=== PATIENT | male | born 1965 | race African-American/Black ===

== ENCOUNTER 2016-12-20 11:27 | Observation (INO) | payer OTHER ==
--- NOTE | 2016-12-20 11:59 | CPEKG ---
Heart Rate: 74 RR Interval: 811 P-R Interval: 164 QRSD Interval: 132 QT Interval: 412 QTC Interval: 457 P Hillister: 62 QRS Hillister: -61 T Wave Hillister: 20 EKG Severity - ABNORMAL ECG - EKG Impression: SINUS RHYTHM EKG Impression: RBBB AND LAFB EKG Impression: LEFT VENTRICULAR HYPERTROPHY Electronically Signed By: Calderon Nassar 20-Dec-2016 12:13:00
[2016-12-20 12:10] LABS: % IMMATURE GRANULYOCYTES 0.5 % (0.0-1.1); ABSOLUTE IMMATURE GRANULOCYTES 0.02 10^3/uL (0.00-0.10); ADD DIFF? NO; ADD MORPH? NO; ADD SCAN? NO; ATYPICAL LYMPHOCYTE FLAG 20 (0-99); FRAGMENT RBC FLAG 0 (0-99); HEMATOCRIT 39.5 % (40.0-51.0); HEMOGLOBIN 13.4 g/dL (13.7-17.5); LEFT SHIFT FLG 10 (0-99); LIPEMIA HEMOLYSIS FLAG 90 (0-99); MEAN CELL HEMOGLOBIN 31.4 pg (27.9-34.1); MEAN CELL HEMOGLOBIN CONCENTR. 33.9 g/dL (32.4-36.7); MEAN CELL VOLUME 92.5 fL (81.5-99.8); MEAN PLATELET VOLUME 9.8 fL (8.7-11.7); PLATELET CLUMPS FLAG 0 (0-99); PLATELET COUNT 162 10^3/uL (150-400); RED BLOOD CELL COUNT 4.27 10^6/uL (4.40-6.38); RED CELL DISTRIBUTION WIDTH 13.2 % (11.5-15.2)
--- NOTE | 2016-12-20 12:19 | EDPHY ---
H & P Stated Complaint: lightheaded since awaking this morning, high blood pressure Time Seen by Provider: 12/20/16 11:34 HPI/ROS: CHIEF COMPLAINT: Presyncope HISTORY OF PRESENT ILLNESS: The patient presents to the ED with complaints of presyncope that occurred approximately 2 hours after taking his regular dose of lisinopril. The patient denies any complaints of vertigo. He denies focal numbness or weakness. He denies recent fever, cough or congestion. The patient reports no changes to his regular medications. He has normal urine output. The patient was concerned about his ongoing symptoms and contacted paramedics. The patient was noted to be initially hypertensive upon arrival. He was brought to the ED for further evaluation. In the emergency department, the patient continues to complain of a sensation of vague generalized weakness and presyncope. He denies additional acute complaints. REVIEW OF SYSTEMS: A comprehensive 10 point review of systems is otherwise negative aside from elements mentioned in the history of present illness. Source: Patient Exam Limitations: No limitations - Personal History Current Tetanus/Diphtheria Vaccine: Unsure Current Tetanus Diphtheria and Acellular Pertussis (TDAP): Unsure - Medical/Surgical History Hx Asthma: No Hx Chronic Respiratory Disease: No Hx Diabetes: No Hx Cardiac Disease: No Hx Renal Disease: No Hx Cirrhosis: No Hx Alcoholism: No Hx HIV/AIDS: No Hx Splenectomy or Spleen Trauma: No Other PMH: htn - Social History Smoking Status: Never smoked - Physical Exam Exam: General Appearance: Alert, no distress Eyes: Pupils equal and round no pallor or injection ENT, Mouth: Mucous membranes moist Respiratory: There are no retractions, lungs are clear to auscultation Cardiovascular: Regular rate and rhythm Gastrointestinal: Abdomen is soft and nontender, no masses, bowel sounds normal Neurological: A&O, normal motor function, normal sensory exam, normal cranial nerves Skin: Warm and dry, no rashes Musculoskeletal: Neck is supple nontender Extremities: symmetrical, full range of motion Constitutional: Initial Vital Signs Temperature (C) 36.7 C 12/20/16 11:33 Heart Rate 83 12/20/16 11:33 Respiratory Rate 18 12/20/16 11:33 Blood Pressure 160/113 H 12/20/16 11:33 O2 Sat (%) 95 12/20/16 11:33 O2 Delivery Mode Room Air Allergies/Adverse Reactions: No Known Allergies Allergy (Unverified 12/20/16 11:35) Home Medications: Medication Instructions Recorded Lisinopril 12/20/16 Medical Decision Making - Diagnostics EKG Interpretation: EKG: Complete interpretation has been separately recorded in the [facility] archive. Summary impression: Bifascicular block, LVH Imaging: Chest x-ray PA lateral: Images reviewed by myself, negative for acute disease. Formal interpretation by Radiology pending. ED Course/Re-evaluation: The patient presents to the emergency department with complaints of positional presyncope that occurred after taking his lisinopril. Upon arrival, the patient 's blood pressure is 140/100. His EKG does demonstrate a bifascicular block. There is no prior EKG to compare to. The patient was placed on a pharmacist technician. He received a L of normal saline. Screening laboratory studies have been ordered. The patient was observed in the ED without evidence of arrhythmia. He developed no hypotension or significant hypertension throughout his stay. The patient was re-evaluated by myself at 2:00 p.m.. The patient developed a recurrent episode of presyncope and was noted to be in a tachyarrhythmia at a rate of approximately 130-140. This broke before formal EKG could be obtained. In reviewing the rhythm strip my it is unclear whether the patient went into a sinus tachycardia or atrial flutter. Given the patient's ongoing symtpoms of syncope with nonspecific arrhythmias I do feel he should be admitted to the hospital. I called [facility] at 2pm. I do not feel the patient is safe to be transferred in the setting of an undiagnosed tachyarrhythmia. The patient will be admitted to our hospital for close observation this evening. Consultation is made with Dr. Mark Jin at 2:00 p.m.. Differential Diagnosis: Differential diagnosis considered includes medication side effect, metabolic abnormality, arrhythmia - Data Points Laboratory Results: Laboratory Results 12/20/16 11:58 12/20/16 11:58 12/20/16 12/20/16 11:58 11:58 WBC 3.79 10^3/uL L 10^3/uL (3.80-9.50) RBC 4.27 10^6/uL L 10^6/uL (4.40-6.38) Hgb 13.4 g/dL L g/dL (13.7-17.5) Hct 39.5 % L % (40.0-51.0) MCV 92.5 fL fL (81.5-99.8) MCH 31.4 pg pg (27.9-34.1) MCHC 33.9 g/dL g/dL (32.4-36.7) RDW 13.2 % % (11.5-15.2) Plt Count 162 10^3/uL 10^3/uL (150-400) MPV 9.8 fL fL (8.7-11.7) Neut % (Auto) 61.0 % % (39.3-74.2) Lymph % (Auto) 23.2 % % (15.0-45.0) Villalba % (Auto) 13.2 % H % (4.5-13.0) Eos % (Auto) 1.8 % % (0.6-7.6) Baso % (Auto) 0.3 % % (0.3-1.7) Nucleat RBC Rel Count 0.0 % % (0.0-0.2) Absolute Neuts (auto) 2.31 10^3/uL 10^3/uL (1.70-6.50) Absolute Lymphs (auto) 0.88 10^3/uL L 10^3/uL (1.00-3.00) Absolute Monos (auto) 0.50 10^3/uL 10^3/uL (0.30-0.80) Absolute Eos (auto) 0.07 10^3/uL 10^3/uL (0.03-0.40) Absolute Basos (auto) 0.01 10^3/uL L 10^3/uL (0.02-0.10) Absolute Nucleated RBC 0.00 10^3/uL 10^3/uL (0-0.01) Immature Gran % 0.5 % % (0.0-1.1) Immature Gran # 0.02 10^3/uL 10^3/uL (0.00-0.10) Sodium 140 mEq/L mEq/L (134-144) Potassium 4.1 mEq/L mEq/L (3.5-5.2) Chloride 103 mEq/L mEq/L (97-110) Carbon Dioxide 26 mEq/l mEq/l (22-31) Anion Gap 11 mEq/L mEq/L (8-16) BUN 14 mg/dL mg/dL (7-23) Creatinine 0.8 mg/dL mg/dL (0.7-1.3) Estimated GFR > 60 Glucose 88 mg/dL mg/dL (70-100) Calcium 9.4 mg/dL mg/dL (8.5-10.4) Troponin I < 0.012 ng/mL ng/mL (0-0.034) Departure - Departure Disposition: [facility] Inpatient Acute Clinical Impression: Pre-syncope, Tachycardia Condition: Good
[2016-12-20 12:32] LABS: ANION GAP 11 mEq/L (8-16); CALCIUM 9.4 mg/dL (8.5-10.4); CARBON DIOXIDE 26 mEq/l (22-31); CHLORIDE 103 mEq/L (97-110); CREATININE 0.8 mg/dL (0.7-1.3); GLOMERULAR FILTRATION RATE > 60; GLUCOSE 88 mg/dL (70-100); POTASSIUM 4.1 mEq/L (3.5-5.2); SODIUM 140 mEq/L (134-144)
[2016-12-20 12:42] LABS: TROPONIN I < 0.012 ng/mL (0-0.034)
[2016-12-20] MEDS ORDERED: ACETAMINOPHEN 325 MG TAB PO PRN (14:52)
[2016-12-20] MEDS ORDERED: ONDANSETRON 4 MG/2 ML VIAL IVP PRN (14:52)
[2016-12-20] MEDS ORDERED: ONDANSETRON DISINTEGRATING 4 MG TAB PO PRN (14:52)
--- NOTE | 2016-12-20 15:40 | GHP ---
[f rep st] HISTORY AND PHYSICAL DATE OF ADMISSION: 12/20/2016 HISTORY OF PRESENT ILLNESS: The patient is a 51-year-old gentleman with a history of hypertension who presented with presyncope today. He took a lisinopril at work at about 8:30, subsequently, a couple of hours later, stood up and felt dizzy and lightheaded. He also noted palpitations, which he describes as very fast in his chest. His mother has a history of a rapid heartbeat, arrhythmia. He cannot tell me if it is atrial fibrillation versus other diagnosis. He has had a cardiac workup that he has been told is inconclusive, but this has not included heart monitor or outpatient telemetry monitoring. It sounds like he has probably had a stress test. His exercise tolerance is good. He typically does more than 11,000 steps per day as part of his job. He does not have anginal symptoms. He has noted some increased dyspnea on exertion lately, but that has corresponded to a cold, and it does not sound like he has had any new shortness of breath that is unrelated to his new cold. He does not have PND, orthopnea, or lower extremity edema. He does smoke cigarettes. He does not drink much alcohol. He says he uses a moderate amount of caffeine and does not use other stimulant drugs. No fever, chills, cough, sputum. REVIEW OF SYSTEMS: A complete 10-point review of systems was conducted and negative except as noted in the HPI. PAST MEDICAL HISTORY: Hypertension. FAMILY HISTORY: See HPI. SOCIAL HISTORY: Active job. Originally from [place], [place]. Lives in [place] for 3 years. 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 Lives in [place]. ALLERGIES: No known drug allergies. MEDICATIONS: Lisinopril. PHYSICAL EXAM: VITAL SIGNS: Temp 36.7, blood pressure 160/113, pulse 83, breathing 18 times a minute, 95% on room air. GENERAL: No acute distress. HEENT: Sclerae anicteric. Oropharynx clear. Mucous membranes moist. NECK: Supple. No lymphadenopathy or JVD. LUNGS: Clear to auscultation bilaterally. HEART: S1, S2 without murmur. ABDOMEN: Soft, nontender, nondistended. LOWER EXTREMITIES: No edema. Calves are nontender. SKIN: Without rash. NEUROLOGIC: Grossly nonfocal. LABS: White count 3.8, hematocrit 39.5, platelets are 162,000. Troponin less than 0.012. Sodium 140, potassium 4.1, chloride 103, bicarb 26, BUN 14, creatinine 0.8, glucose 88. STUDIES: Chest x-ray interpreted by me shows no acute cardiopulmonary disease. EKG interpreted by me shows a right bundle branch block, left anterior fascicular block. Telemetry in the ER revealed tachyarrhythmia at about 150. There was a lot of artifact, so it was impossible to see if there were flutter waves or not. I have discussed the case with Dr. Brien Nassar. ASSESSMENT/PLAN: A 51-year-old gentleman who presented with palpitations and tachyarrhythmia. 1. Arrhythmia. I suspect this is either atrial fibrillation or atrial flutter , less likely supraventricular tachycardia. We will watch him on telemetry. Hold jn agents. Perform echocardiogram. I do not think this represents an ischemic event. We will not cycle troponins. He does not have any evidence of anginal symptoms. 2. Leukopenia. This is attributable to a recent viral infection. 3. Family history of atrial arrhythmia. This points us in the direction of likely atrial fibrillation. 4. Recent cold. Patient does not have an infiltrate on chest x-ray. 5. Prophylaxis: Pharmacologic prophylaxis indicated if in the hospital longer than 24 hours. He is currently observation status. 6. Disposition: Observation status. /[id number]/MODL MTDD
--- NOTE | 2016-12-20 16:06 | ECHO ---
[id number] + + [address] : : [place] [address] : : [phone] + + Adult Echocardiographic Report + -------+ :Name: CHUCK MCNEAL CStudy Date: 12/20/2016 03:29 PM BP: 149/107 m mHg : : Hospital Admission Number: [id number] Locat ion: ER: :: 1965 Gender: Male Height: 73 in : :Age: 51 yrs Race: [facility] Weight: 175 l b : :Reason For Study: arrhythmia : : BSA: 2.0 mete rs2 : :History: HTN : + -------+ MMode/2D Measurements \T\ Calculations IVSd: 1.2 cm RVDd: 3.4 cm FS: 38.6 % Ao root diam: LVPWd: 1.2 cm LVIDd: 4.4 cm EDV(Teich): 3.6 cm LVIDs: 2.7 cm 89.1 ml LA dimension: ESV(Teich): 2.4 cm 27.5 ml EF(Teich): 69.1 % LVLd ap4: 9.2 cm SV(MOD-sp4): EDV(MOD-sp4): 74.0 ml 122.0 ml LVLs ap4: 7.1 cm ESV(MOD-sp4): 48.0 ml EF(MOD-sp4): 60.7 % Normal Measurement Values: + + :LVIDd (3.5-5.7cm) IVSd (0.6-1.1cm) LVPWd (0.6-1.1cm) Aortic Root (2.0-3.7cm)Left Atrium (1.5-4.0cm): :LV Vol(d) (76-115ml) LV Vol(s) (29-48ml) Ejec Fraction (50-65%)PV Bismark (0.6- 1.2m/s) TV Bismark (0.4-1.0m/s) : :MV E Bismark (0.8-1.0m/s)MV A Bismark (0.3-1.0m/s)LVOT Bismark (0.7-1.2m/s) Asc Ao Bismark ( 0.9-1.8m/s) : + + Doppler Measurements \T\ Calculations MV E max bismark: Ao V2 max: LV V1 max: PA V2 max: 56.8 cm/sec 119.0 cm/sec 110.0 cm/sec 84.7 cm/sec MV A max bismark: Ao max PG: LV V1 max PG: PA max P.6 cm/sec 5.7 mmHg 4.8 mmHg 2.9 mmHg MV E/A: 0.87 MV dec time: 0.34 sec TR max bismark: 228.0 cm/sec TR max P.8 mmHg Left Ventricle The left ventricle is normal in size and function. There is mild concentric left ventricular hypertrophy. Ejection Fraction = 65%. Left ventricular systolic function is normal. No regional wall motion abnormalities noted. Right Ventricle The right ventricle is normal in size and function. Atria The left atrial size is normal. Right atrial size is normal. Mitral Valve The mitral valve is normal in structure and function. There is no mitral valve stenosis. There is trace mitral regurgitation. Tricuspid Valve The tricuspid valve is normal in structure and function. There is no tricuspid stenosis. There is mild tricuspid regurgitation. Right ventricular systolic pressure is 26mmHg. Aortic Valve The aortic valve is trileaflet. There is no aortic stenosis. Trace aortic regurgitation. Pulmonic Valve The pulmonic valve is normal in structure and function. Trace pulmonic valvular regurgitation. Great Vessels Mild aortic root dilatation. Mildly dilated ascending aorta. Pericardium/Pleural There is no pericardial effusion. Conclusion A two-dimensional transthoracic echocardiogram with M-mode and Doppler was performed. The left ventricle is normal in size and function. There is mild concentric left ventricular hypertrophy. Ejection Fraction = 65%. Left ventricular systolic function is normal. Cardiac valvular appearance is overall normal. There are Lambl's excrescences noted on the mitral valve. Small vegations canot be excluded. There is trace mitral regurgitation. There is mild tricuspid regurgitation. Right ventricular systolic pressure is 26mmHg. Trace aortic regurgitation. Trace pulmonic valvular regurgitation. Mild aortic root dilatation at 4.3 cm. Mildly dilated ascending aorta at 4.0 cm. Final Reading Physician: Kevin Salter signed on 12/20/2016 04:04 PM Ordering Physician: Mark Jin Performed By: Terri Post
[2016-12-21 05:28] LABS: ANION GAP 12 mEq/L (8-16); CALCIUM 9.4 mg/dL (8.5-10.4); CARBON DIOXIDE 25 mEq/l (22-31); CHLORIDE 101 mEq/L (97-110); CREATININE 0.8 mg/dL (0.7-1.3); GLOMERULAR FILTRATION RATE > 60; GLUCOSE 79 mg/dL (70-100); POTASSIUM 3.9 mEq/L (3.5-5.2); SODIUM 138 mEq/L (134-144)
[2016-12-21 07:28] VITALS: PULSE 56; RESP 19; TEMP 98.2; O2SAT 93
[2016-12-21] MEDS ORDERED: LISINOPRIL 20 MG TAB PO SCH (09:00)
--- NOTE | 2016-12-21 13:03 | PDDCSUM ---
Discharge Summary Discharge Summary: 51 yo male [facility] patient admitted for near syncope. Upon further questioning it appears that the etiology is due to orthostatic hypotension. It happened while standing from a prolonged sitting position. At that time he felt like he would faint. After sitting he felt palpitations and was diphoretic. A similar episode happened 1.5 years ago. He is on Lisinopril 20 mg daily and has been on this for several years. He was admitted. There were not overnight events. His BP was found to be in the 140's - 160's range systolic. He was given his morning dose of Lisinopril w/o event. HR was noted to be in the 60's. No tachycardia. One isolated HR in the 50 's. On the morning of d/c, he is not symptomatic and wants to discharge and f/u with [facility] for the remaining w/u. I did offer to keep him overnight to complete our w/u. As he is no longer sympomatic, has not had any events on telemetry, and wants to discharge, we will proceed with discharge with f/u to PCP We discussed decreasing his Lisnopril dose and he opted to continue at the current dose as his BP has been elevated despite taking the medication. He will be careful to transition from a resting to standing position. He will f/u with his PCP. Denies CP, SOB, N/V, or other. On RA. DDX: near syncope HTN Palpitations P.E. VSS NAD AAOX3 PEERLA MMM OROPHARYNX IS CLEAR S/NT/ND NO EDEMA MEDS/ALL: LISINOPRIL 20MG DAILY TOTAL CARE TIME ARRANGING DISCHARGE IS 37 MINS
[2016-12-21 13:08] VITALS: BP 146/107
== END 2016-12-21 13:40 | disposition home or self-care (01) ==
LOC: EDUNIT# → F2W 19:52
PROVIDERS: ADMIT Internal Medicine; ATTEND Internal Medicine
DX: R55 Syncope and collapse (principal); I10 Essential (primary) hypertension; R00.2 Palpitations
CPT/HCPCS: 71010; 93005; 93306; 99285; G0378